=== PATIENT | male | born 1950 | race Caucasian/White ===

== ENCOUNTER 2020-05-07 11:02 | Emergency (ER) | payer BC, MEDICARE ==
[2020-05-07 11:26] LABS: Absolute Neutrophil Ct (ANC) 4.78 (1.4-6.9); BASOPHIL % 0.6 % (0.0-0.4); Basophil (Absolute #) 0.04 (0-0.4); Eosinophil % 7.2 % (0.00-5.0); Eosinophil (Absolute #) 0.48 (0-0.5); Hematocrit 44.3 % (42-50); Hemoglobin 14.8 gm/dl (12.5-18.0); Lymphocyte (Absolute #) 0.71 (1.0-4.6); Lymphocytes % 10.7 % (24.0-44.0); Mean Cell Volume 88.6 fl (78-100); Mean Corpuscular Hemoglobin 29.6 pg (26-32); Mean Corpuscular Hgb Concent. 33.4 g/dl (32-36); Mean Platelet Volume 10.6 fl (7.5-11.0); Monocyte (Absolute #) 0.65 (0.0-1.3); Monocytes % 9.8 % (0.0-12.0); Neutrophil % 71.7 % (36.0-66.0); Platelet Count 167 K/mm3 (150-450); White Blood Count 6.7 K/mm3 (4.0-10.5)
[2020-05-07 11:33] LABS: INR 1.01 (0.8-3.0); PROTIME 11.4 SECONDS (8.83-12.87)
[2020-05-07 11:36] LABS: PTT 30.7 SECONDS (24.1-36.1)
[2020-05-07 11:46] VITALS: BP 162/98; PULSE 60; O2SAT 95
--- NOTE | 2020-05-07 11:59 | ERPHSYRPT ---
- History of Present Illness Time Seen by Provider: 05/07/20 11:55 Source: patient, family Exam Limitations: no limitations Patient Subjective Stated Complaint: Weakness to left leg Triage Nursing Assessment: Patient brought back to ED and transferred self to bed. Patient A+O X 3. Patient's skin pink, warm and dry. Patient complain of left leg numbn/ess that started around 0900 this am. Patient has recent stroke on 05/03/2020 that effected his left hand. Patient was just released from [facility] yesterday. Patient has drooping to left side of mouth noted. Patient's noted to be weaker on left side. Physician History: Patient complain of left leg numbn/ess that started around 0900 this am. Patient has recent stroke on 05/03/2020 that effected his left hand. Patient was just released from [facility] yesterday. Patient has drooping to left side of mouth noted. Patient's noted to be weaker on left side. Time of Onset/Last Time Seen Normal: Weakness to left leg started today AM Timing/Duration: today Severity: mild Character of Deficits: new weakness, altered sensation, LLE Deficits: no difficulties Baseline/Normal Cognition: alert oriented x 3 Current Cognition: alert oriented x 3 Baseline Gait: walks w/o assistance Associated Symptoms: weakness, numbness/tingling in legs/feet Allergies/Adverse Reactions: No Known Drug Allergies Allergy (Verified 05/07/20 11:04) Home Medications: Amlodipine Besylate 5 mg [Norvasc 5 mg] 1 tab PO DAILY 05/07/20 [History] Aspirin 81 gm Chew [Baby Aspirin 81 mg Chew] 1 tab PO DAILY 05/07/20 [History] Atorvastatin Calcium 1 tab PO HS 05/07/20 [History] Bumetanide 1 mg [Bumex 1 mg] 1 tab PO DAILY 05/07/20 [History] Carvedilol 6.25 mg [Coreg 6.25 MG] 1 tab PO DAILY 05/07/20 [History] Glipizide [Glipizide Xl] 1 tab PO BID 05/07/20 [History] Lisinopril 1 tab PO DAILY 05/07/20 [History] Metformin HCl 500 mg [Glucophage 500 MG] 1 tab PO BID 05/07/20 [History] Hx Tetanus, Diphtheria Vaccination/Date Given: Yes Hx Influenza Vaccination/Date Given: Yes Hx Pneumococcal Vaccination/Date Given: No Immunizations Up to Date: Yes Travel Risk - International Travel Have you traveled outside of the country in past 3 weeks: No - Coronavirus Screening Are you exhibiting any of the following symptoms?: No Close contact with a COVID-19 positive Pt in past 14-21 Days: No - Review of Systems Constitutional: No Symptoms Eyes: No Symptoms Ears, Nose, & Throat: No Symptoms Respiratory: No Symptoms Cardiac: No Symptoms Abdominal/Gastrointestinal: No Symptoms Genitourinary Symptoms: No Symptoms Musculoskeletal: No Symptoms Skin: No Symptoms Neurological: Focal Weakness - Past Medical History Pertinent Past Medical History: Yes Neurological History: Stroke ENT History: No Pertinent History Cardiac History: High Cholesterol Respiratory History: No Pertinent History Endocrine Medical History: Diabetes Type II Musculoskeletal History: No Pertinent History GI Medical History: Gallbladder Disease History: No Pertinent History Psycho-Social History: No Pertinent History Male Reproductive Disorders: No Pertinent History - Past Surgical History Past Surgical History: Yes Neuro Surgical History: No Pertinent History Cardiac: No Pertinent History Respiratory: No Pertinent History Gastrointestinal: Appendectomy, Colon Resection Genitourinary: Other Musculoskeletal: No Pertinent History Male Surgical History: Vasectomy Other Surgical History: Bladder grown into colon, surgery performed by Dr. Mclean in 2005 - Social History Smoking Status: Never smoker Exposure to second hand smoke: Yes Drug Use: none Patient Lives Alone: No - Nursing Vital Signs Nursing Vital Signs: Initial Vital Signs Pulse Rate 63 05/07/20 11:06 Respiratory Rate 18 05/07/20 11:06 Blood Pressure 178/94 05/07/20 11:06 O2 Sat by Pulse Oximetry 98 05/07/20 11:06 Pain Scale Pain Intensity 0 - Brooke Coma Scale Best Eye Response (Brooke): (4) open spontaneously Best Verbal Response (Brooke): (5) oriented Best Motor Response (Windsor): (6) obeys commands [place] Total: 15 - Physical Exam General Appearance: no apparent distress, alert Eye Exam: bilateral eye: PERRL, EOMI Ears, Nose, Throat Exam: normal ENT inspection, moist mucous membranes Neck Exam: normal inspection, non-tender, supple Respiratory: normal breath sounds, lungs clear, airway intact, No respiratory distress Cardiovascular: regular rate/rhythm, No edema Gastrointestinal: soft, No tenderness, No distention Back Exam: normal inspection Extremity Exam: normal inspection, No pedal edema 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, 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 hearing, facial droop, tongue midline Coordination/Gait: normal finger to nose Motor/Sensory: weak motor strength LLE DTR: knee (R): 2+, knee (L): 1+, ankle (R): 2+, ankle (L): 1+ Skin Exam: normal color, warm, dry, No rash SpO2 Interpretation: normal SpO2: 95 O2 Delivery: Room Air - Course Nursing assessment & vital signs reviewed: Yes - CT Exams Head CT Interpretation: Tele-radiologist Report Ordered Tests: Active Orders 24 hr Category Date Time Status Floral Merchandiser STAT Care 05/07/20 11:12 Active EKG-ER Only STAT Care 05/07/20 11:11 Active IV Insertion STAT Care 05/07/20 11:41 Active NPO (ED) STAT Care 05/07/20 11:11 Active Oxygen-ED Only Nasal Cannula 2 lpm Care 05/07/20 11:11 Active HEAD WITHOUT CONTRAST [CT] Stat Exams 05/07/20 11:05 Taken BMP Stat Lab 05/07/20 11:11 Completed CBC W DIFF Stat Lab 05/07/20 11:11 Completed PROTIME WITH INR Stat Lab 05/07/20 11:11 Completed PTT Stat Lab 05/07/20 11:11 Completed TROPONIN Stat Lab 05/07/20 11:11 Completed Lab/Rad Data: Laboratory Result Diagrams 05/07/20 11:11 05/07/20 11:11 Laboratory Results 05/07/20 05/07/20 05/07/20 Range/Units 11:11 11:11 11:11 WBC 6.7 (4.0-10.5) K/mm3 RBC 5.00 (4.1-5.6) M/mm3 Hgb 14.8 (12.5-18.0) gm/dl Hct 44.3 (42-50) % MCV 88.6 (78-100) fl MCH 29.6 (26-32) pg MCHC 33.4 (32-36) g/dl RDW 14.0 (11.5-14.0) % Plt Count 167 (150-450) K/mm3 MPV 10.6 (7.5-11.0) fl Gran % 71.7 H (36.0-66.0) % Eos # (Auto) 0.48 (0-0.5) Absolute Lymphs (auto) 0.71 L (1.0-4.6) Absolute Monos (auto) 0.65 (0.0-1.3) Lymphocytes % 10.7 L (24.0-44.0) % Monocytes % 9.8 (0.0-12.0) % Eosinophils % 7.2 H (0.00-5.0) % Basophils % 0.6 (0.0-0.4) % Absolute Granulocytes 4.78 (1.4-6.9) Basophils # 0.04 (0-0.4) PT 11.4 (8.83-12.87) SECONDS INR 1.01 (0.8-3.0) APTT 30.7 (24.1-36.1) SECONDS Sodium 134 L (137-145) mmol/L Potassium 4.4 (3.5-5.1) mmol/L Chloride 106 (98-107) mmol/L Carbon Dioxide 21 L (22-30) mmol/L Anion Gap 11.4 (5-15) MEQ/L BUN 27 H (9-20) mg/dL Creatinine 1.60 H (0.66-1.25) mg/dL Estimated GFR 46.1 ML/MIN Glucose 248 H (74-106) mg/dL Calcium 9.2 (8.4-10.2) mg/dL Troponin I 0.023 (0.000-0.034) ng/mL - Progress Progress: improved Progress Note: 05/07/20 12:15 Walk to the bathroom without any difficulties. Patient has no speech difficulty. Patient states that the strength on his left upper arm is coming back now he can flex his wrist as well as his elbow and he is feeling more strength in his left upper extremity. Lab results and CAT scan results discussed with him. Patient is informed that he should continue physical therapy speech therapy and occupational therapy actively. Counseled pt/family regarding: lab results, diagnosis, need for follow-up, rad results - Departure Departure Disposition: Home Clinical Impression: Status post cerebrovascular accident Cerebrovascular accident (stroke) Qualifiers: CVA mechanism: other Qualified Code(s): I63.89 - Other cerebral infarction Condition: Stable Critical Care Time: Yes Critical Care Time(excluding separately billable procedures): Critical 30-74 mins Referrals: PHILIP ISAAC [Primary Care Provider] - Additional Instructions: Discharge/Care Plan COY HENRY was seen on 05/07/20 in the Emergency Room. The patient was counseled regarding Diagnosis,Lab results, Imaging studies, need for follow up and when to return to the Emergency Room. Prescriptions given: Discharge Note I have spoken with the patient and/or caregivers. I have explained the patient's condition, diagnosis and treatment plan based on the information available to me at this time. I have answered the patient's and/or caregiver's questions and addressed any concerns. The patient and/or caregivers have as good understanding of the patient's diagnosis, condition and treatment plan as can be expected at this point. The vital signs have been stable. The patient's condition is stable and appropriate for discharge from the emergency department. The patient will pursue further outpatient evaluation with the primary care physician or other designated or consulting physician as outlined in the discharge instructions. The patient and/or caregivers are agreeable to this plan of care and follow-up instructions have been explained in detail. The patient and/or caregivers have received these instruction. The patient/and or caregivers are aware that any significant change in condition or worsening of symptoms should prompt an immediate return to this or the closest emergency department or call 911. COY HENRY was seen on 05/07/20 n the Emergency Room. At that time you were treated for an emergent condition, during your visit Laboratory, Radiology and/or other procedures may have been ordered. It is very important that you follow-up with your Primary Care Physician PHILIP ISAAC within the next 24-48 hours to review your Emergency Room visit and the final results of testing that was ordered. Some test results such as Urine Cultures, Blood Cultures, and other cultures if ordered will not be finalized for 24-48 hours. If you do not have a Primary Care Provider please call the medical records department at [phone] to obtain a copy of your results or you may sign into our patient portal to obtain these results by visiting us @ [email or web address] and completing the following steps: 1. Click on the Patient Portal link 2. Click the Patient Self Enrollment Link to complete the enrollment form and entering your 3. Once the enrollment form is completed you will receive an email with a temporary ID and password at the email address you provided. 4. Next choose a user name and password. Your user name must be at least 4 characters long and your password must be at least 4 characters long. 5. Choose a security question from the list and provide your answer to the question. If you already have signed into the Health Portal you may access your Health Care Information 27/11 by the following steps: 1. Login to our website @ [email or web address] 2. Enter your original user name and password. FAQS The [facility] Health Portal is an online tool that contains your Lab Results, Radiology Reports, Visit History, Discharge Instructions and Health Summary Lab and Radiology Results will not be available for 72 hours on the portal. The Portal is a secure site, passwords are encryted and URLs are re-written so they cannot be copied and pasted. You and authorized family members are the only ones who can access your Portal. Also there is a timeout feature that protects your information if you leave the Portal page open. If you have technical difficulty please use the Contact Us link on the page this will allow you to submit any questions you have regarding the Portal or you may contact the Medical Record Department at [phone] ext [phone].
[2020-05-07 12:06] LABS: ANION GAP 11.4 MEQ/L (5-15); Calcium 9.2 mg/dL (8.4-10.2); Creatinine 1 1.6 mg/dL (0.66-1.25); EST GLOMERULAR FILTRATION RATE 46.1 ML/MIN; Potassium 4.4 mmol/L (3.5-5.1); TROPONIN 0.023 ng/mL (0.000-0.034)
--- NOTE | 2020-05-07 17:58 | XRAY ---
Indication: Left hand and left leg numbness one week. Multiple contiguous axial images obtained through the head without contrast. Comparison: January 25, 2013. Age-appropriate global atrophy. Right precentral gyrus demonstrates small focus of subtle hypoattenuation concerning for ischemia. No acute intracranial hemorrhage, mass effect, or midline shifting. Fourth ventricle is midline without hydrocephalus. Bony calvarium remains intact. Visual d paranasal sinuses and mastoid air cells are clear. Impression: New right precentral gyrus hypoattenuation, possible ischemia. No acute hemorrhage/mass effect. Comment: Preliminary interpretation was made by [facility]. No critical discrepancy.
== END 2020-05-07 12:42 | disposition home or self-care (01) ==
LOC: ED 11:02
DX: R20.0 Anesthesia of skin (principal); Z86.73 Personal history of transient ischemic attack (TIA), and cerebral infarction without residual deficits; Z79.899 Other long term (current) drug therapy; E11.9 Type 2 diabetes mellitus without complications; E78.5 Hyperlipidemia, unspecified; I63.89 Other cerebral infarction
CPT/HCPCS: 36000; 36415; 70450; 80048; 84484; 85025; 85610; 85730; 93005; 93041; 99284; 99291

== ENCOUNTER 2020-12-07 00:29 | Emergency (ER) | payer BC, MEDICARE ==
[2020-12-07 00:54] LABS: Absolute Neutrophil Ct (ANC) 3.94 (1.4-6.9); Basophil (Absolute #) 0.06 (0-0.4); Eosinophil % 6.3 % (0.00-5.0); Eosinophil (Absolute #) 0.38 (0-0.5); Hematocrit 40.2 % (42-50); Hemoglobin 13.4 gm/dl (12.5-18.0); Lymphocyte (Absolute #) 0.92 (1.0-4.6); Lymphocytes % 15.3 % (24.0-44.0); Mean Cell Volume 89.3 fl (78-100); Mean Corpuscular Hemoglobin 29.8 pg (26-32); Mean Corpuscular Hgb Concent. 33.3 g/dl (32-36); Mean Platelet Volume 10.7 fl (7.5-11.0); Monocyte (Absolute #) 0.72 (0.0-1.3); Neutrophil % 65.4 % (36.0-66.0); Platelet Count 180 K/mm3 (150-450); Red Cell Distribution Width 13.5 % (11.5-14.0)
--- NOTE | 2020-12-07 01:03 | ERPHSYRPT ---
- History of Present Illness Time Seen by Provider: 12/07/20 00:45 Historian: patient Exam Limitations: no limitations Patient Subjective Stated Complaint: . Triage Nursing Assessment: . Physician History: Patient is a 69-year-old male presents to our ED with complaints of chest pain that has been intermittent for the past 3 weeks. Patient states chest pain has gotten progressively worse. Pain currently rated 10 out of 10. Pain tends to radiate to his back. Patient feels nauseous. No vomiting. No fever. No tra mirian. Symptoms are mild to moderate in intensity. No specific worsening or improving factors. Patient voices no other complaints or concerns at this time. Timing/Duration: week(s) (3 weeks pain significantly worse today.) Activities at Onset: none Quality: aching Location: substernal Chest Pain Radiation: back Severity of Pain-Max: moderate Severity of Pain-Current: mild Modifying Factors: Improves With: nitroglycerin Associated Symptoms: nausea, No shortness of breath, No fever, No weakness, No syncope, No headache Prior Chest Pain/Cardiac Workup: no prior chest pain Nitro Today/Relief: no nitro taken today Aspirin Treatment Today: no aspirin today Allergies/Adverse Reactions: No Known Drug Allergies Allergy (Verified 12/07/20 00:47) Home Medications: Amlodipine Besylate 5 mg [Norvasc 5 mg] 1 tab PO DAILY 05/07/20 [History] Aspirin 81 gm Chew [Baby Aspirin 81 mg Chew] 1 tab PO DAILY 05/07/20 [History] Atorvastatin Calcium 1 tab PO HS 05/07/20 [History] Bumetanide 1 mg [Bumex 1 mg] 1 tab PO DAILY 05/07/20 [History] Carvedilol 6.25 mg [Coreg 6.25 MG] 1 tab PO DAILY 05/07/20 [History] Glipizide [Glipizide Xl] 1 tab PO BID 05/07/20 [History] Lisinopril 1 tab PO DAILY 05/07/20 [History] Metformin HCl 500 mg [Glucophage 500 MG] 1 tab PO BID 05/07/20 [History] Hx Tetanus, Diphtheria Vaccination/Date Given: Yes Hx Influenza Vaccination/Date Given: Yes (fall 2019) Hx Pneumococcal Vaccination/Date Given: Yes (about 1 yr ago) Immunizations Up to Date: Yes Travel Risk - International Travel Have you traveled outside of the country in past 3 weeks: No - Coronavirus Screening Are you exhibiting any of the following symptoms?: No - Vaccine Status Have you recieved a Covid-19 vaccination: No - Review of Systems Constitutional: No Symptoms, No Fever, No Chills Eyes: No Symptoms Ears, Nose, & Throat: No Symptoms Respiratory: No Symptoms, No Cough, No Dyspnea Cardiac: No Symptoms, No Chest Pain, No Edema, No Syncope Abdominal/Gastrointestinal: No Symptoms, No Abdominal Pain, No Nausea, No Vomiting, No Diarrhea Genitourinary Symptoms: No Symptoms, No Dysuria Musculoskeletal: No Symptoms, No Back Pain, No Neck Pain Skin: No Symptoms, No Rash Neurological: No Symptoms, No Dizziness, No Focal Weakness, No Sensory Changes Psychological: No Symptoms Endocrine: No Symptoms Hematologic/Lymphatic: No Symptoms Immunological/Allergic: No Symptoms All Other Systems: Reviewed and Negative - Past Medical History Pertinent Past Medical History: Yes Neurological History: Stroke ENT History: No Pertinent History Cardiac History: High Cholesterol Respiratory History: No Pertinent History Endocrine Medical History: Diabetes Type II Musculoskeletal History: No Pertinent History GI Medical History: Gallbladder Disease History: No Pertinent History Psycho-Social History: No Pertinent History Male Reproductive Disorders: No Pertinent History - Past Surgical History Past Surgical History: Yes Neuro Surgical History: No Pertinent History Cardiac: No Pertinent History Respiratory: No Pertinent History Gastrointestinal: Appendectomy, Cholecystectomy, Colon Resection Genitourinary: Other Musculoskeletal: No Pertinent History Male Surgical History: Vasectomy Other Surgical History: Bladder grown into colon, surgery performed by Dr. Mclean in 2005 - Social History Smoking Status: Never smoker Exposure to second hand smoke: Yes Drug Use: none Patient Lives Alone: No - Nursing Vital Signs Nursing Vital Signs: Initial Vital Signs Temperature 97.8 F 12/07/20 00:30 Pulse Rate 66 12/07/20 00:30 Respiratory Rate 14 12/07/20 00:30 Blood Pressure 157/99 12/07/20 00:30 O2 Sat by Pulse Oximetry 99 12/07/20 00:30 Pain Scale Pain Intensity 8 - Physical Exam General Appearance: no apparent distress, alert Eye Exam: PERRL/EOMI, eyes nml inspection Ears, Nose, Throat Exam: normal ENT inspection, moist mucous membranes Neck Exam: normal inspection, non-tender, supple, full range of motion Respiratory Exam: normal breath sounds, lungs clear, No respiratory distress Cardiovascular Exam: regular rate/rhythm, normal heart sounds Gastrointestinal/Abdomen Exam: soft, No tenderness, No mass Back Exam: normal inspection, No CVA tenderness, No vertebral tenderness Extremity Exam: normal inspection, normal range of motion, swelling, other (1+ pitting edema bilateral lower extremities.) Neurologic Exam: alert, oriented x 3, cooperative, normal mood/affect, sensation nml, No motor deficits Skin Exam: normal color, warm, dry Lymphatic Exam: No adenopathy SpO2 Interpretation: normal SpO2: 99 O2 Delivery: Room Air - Course Nursing assessment & vital signs reviewed: Yes EKG Interpreted by Me: RATE (66), Sinus Rhythm, NORMAL AXIS, NORMAL INTERVALS - Radiology Exams Chest X-ray Interpretation: Teleradiologist Report (Lungs are unremarkable no consolidation pleural spaces are unremarkable no pneumothorax or effusion. Unremarkable mediastinum are unremarkable bones and joints. No acute findings) Ordered Tests: Active Orders 24 hr Category Date Time Status Type Mapper STAT Care 12/07/20 00:34 Active EKG-ER Only STAT Care 12/07/20 00:33 Active IV Insertion STAT Care 12/07/20 00:33 Active Pulse Oximetry (ED) STAT Care 12/07/20 00:33 Active CHEST 1 VIEW (PORTABLE) Stat Exams 12/07/20 00:34 Taken CBC W DIFF Stat Lab 12/07/20 00:45 Completed CMP Stat Lab 12/07/20 00:45 Completed NT PRO BNP Stat Lab 12/07/20 00:45 Completed TROPONIN Q3H Lab 12/07/20 00:45 Completed TROPONIN Q3H Lab 12/07/20 03:45 Ordered TROPONIN Q3H Lab 12/07/20 06:45 Ordered TROPONIN Q3H Lab 12/07/20 09:45 Ordered TROPONIN Q3H Lab 12/07/20 12:45 Ordered UA W/RFX UR CULTURE Stat Lab 12/07/20 01:56 Completed Medication Summary Generic Name Dose Route Start Last Admin Trade Name Freq PRN Reason Stop Dose Admin Nitroglycerin/Dextrose 250 mls @ 1.5 mls/hr 12/07/20 01:51 12/07/20 02:01 Ntg 0.2mg/Ml In D5w Glass IV 01/06/21 01:50 5 mcg/min .Q24H PRN 1.5 mls/hr CHEST PAIN Administration Protocol 5 MCG/MIN Discontinued Medications Generic Name Dose Route Start Last Admin Trade Name Derick PRN Reason Stop Dose Admin Aspirin 324 mg 12/07/20 00:34 12/07/20 01:13 Baby Aspirin 81 Mg Chew PO 12/07/20 00:35 324 mg STAT ONE Administration Enoxaparin Sodium 100 mg 12/07/20 01:50 12/07/20 02:01 Enoxaparin Sodium 1 mg/kg (100 mg) 12/07/20 01:51 Not Given SQ ONCE STA Enoxaparin Sodium Confirm 12/07/20 01:58 Enoxaparin Sodium Administered 12/07/20 01:59 Dose 120 mg SQ .STK-MED ONE Enoxaparin Sodium 100 mg 12/07/20 01:59 12/07/20 02:17 Enoxaparin Sodium SQ 12/07/20 02:00 100 mg STAT STA Administration Nitroglycerin 1 gm 12/07/20 00:35 12/07/20 01:13 Nitro-Bid 2% Ud Packets TOP 12/07/20 00:36 1 gm STAT ONE Administration Nitroglycerin Confirm 12/07/20 01:10 Nitro-Bid 2% Ud Packets Administered 12/07/20 01:11 Dose 1 gm .ROUTE .STK-MED ONE Lab/Rad Data: Laboratory Result Diagrams 12/07/20 00:45 12/07/20 00:45 Laboratory Results 12/07/20 12/07/20 12/07/20 Range/Units 01:56 00:45 00:45 WBC (4.0-10.5) K/mm3 RBC (4.1-5.6) M/mm3 Hgb (12.5-18.0) gm/dl Hct (42-50) % MCV (78-100) fl MCH (26-32) pg MCHC (32-36) g/dl RDW (11.5-14.0) % Plt Count (150-450) K/mm3 MPV (7.5-11.0) fl Gran % (36.0-66.0) % Eos # (Auto) (0-0.5) Absolute Lymphs (auto) (1.0-4.6) Absolute Monos (auto) (0.0-1.3) Lymphocytes % (24.0-44.0) % Monocytes % (0.0-12.0) % Eosinophils % (0.00-5.0) % Basophils % (0.0-0.4) % Absolute Granulocytes (1.4-6.9) Basophils # (0-0.4) Sodium 136 L (137-145) mmol/L Potassium 4.1 (3.5-5.1) mmol/L Chloride 102 (98-107) mmol/L Carbon Dioxide 25 (22-30) mmol/L Anion Gap 12.2 (5-15) MEQ/L BUN 19 (9-20) mg/dL Creatinine 1.36 H (0.66-1.25) mg/dL Estimated GFR 55.6 ML/MIN Glucose 295 H (74-106) mg/dL Calcium 9.0 (8.4-10.2) mg/dL Total Bilirubin 0.40 (0.2-1.3) mg/dL AST 25 (17-59) U/L ALT 16 (0-50) U/L Alkaline Phosphatase 121 (38-126) U/L Troponin I 0.022 (0.000-0.034) ng/mL NT-Pro-B Natriuret Pep 1410 H (0-900) pg/mL Serum Total Protein 6.7 (6.3-8.2) g/dL Albumin 3.9 (3.5-5.0) g/dL Urine Color STRAW (YELLOW) Urine Appearance CLEAR (CLEAR) Urine pH 7.0 (5-6) Ur Specific Riley 1.012 (1.005-1.025) Urine Protein NEGATIVE (Negative) Urine Ketones NEGATIVE (NEGATIVE) Urine Blood NEGATIVE (0-5) Isaak/ul Urine Nitrite NEGATIVE (NEGATIVE) Urine Bilirubin NEGATIVE (NEGATIVE) Urine Urobilinogen NEGATIVE (0-1) mg/dL Ur Leukocyte Esterase NEGATIVE (NEGATIVE) Urine WBC (Auto) NONE (0-5) /HPF Urine RBC (Auto) NONE (0-2) /HPF U Epithel Cells (Auto) NONE (FEW) /HPF Urine Culture Reflexed NO (NO) Urine Glucose >=500 (NEGATIVE) mg/dL 12/07/20 Range/Units 00:45 WBC 6.0 (4.0-10.5) K/mm3 RBC 4.50 (4.1-5.6) M/mm3 Hgb 13.4 (12.5-18.0) gm/dl Hct 40.2 L (42-50) % MCV 89.3 (78-100) fl MCH 29.8 (26-32) pg MCHC 33.3 (32-36) g/dl RDW 13.5 (11.5-14.0) % Plt Count 180 (150-450) K/mm3 MPV 10.7 (7.5-11.0) fl Gran % 65.4 (36.0-66.0) % Eos # (Auto) 0.38 (0-0.5) Absolute Lymphs (auto) 0.92 L (1.0-4.6) Absolute Monos (auto) 0.72 (0.0-1.3) Lymphocytes % 15.3 L (24.0-44.0) % Monocytes % 12.0 (0.0-12.0) % Eosinophils % 6.3 H (0.00-5.0) % Basophils % 1.0 (0.0-0.4) % Absolute Granulocytes 3.94 (1.4-6.9) Basophils # 0.06 (0-0.4) Sodium (137-145) mmol/L Potassium (3.5-5.1) mmol/L Chloride (98-107) mmol/L Carbon Dioxide (22-30) mmol/L Anion Gap (5-15) MEQ/L BUN (9-20) mg/dL Creatinine (0.66-1.25) mg/dL Estimated GFR ML/MIN Glucose (74-106) mg/dL Calcium (8.4-10.2) mg/dL Total Bilirubin (0.2-1.3) mg/dL AST (17-59) U/L ALT (0-50) U/L Alkaline Phosphatase (38-126) U/L Troponin I (0.000-0.034) ng/mL NT-Pro-B Natriuret Pep (0-900) pg/mL Serum Total Protein (6.3-8.2) g/dL Albumin (3.5-5.0) g/dL Urine Color (YELLOW) Urine Appearance (CLEAR) Urine pH (5-6) Ur Specific Riley (1.005-1.025) Urine Protein (Negative) Urine Ketones (NEGATIVE) Urine Blood (0-5) Isaak/ul Urine Nitrite (NEGATIVE) Urine Bilirubin (NEGATIVE) Urine Urobilinogen (0-1) mg/dL Ur Leukocyte Esterase (NEGATIVE) Urine WBC (Auto) (0-5) /HPF Urine RBC (Auto) (0-2) /HPF U Epithel Cells (Auto) (FEW) /HPF Urine Culture Reflexed (NO) Urine Glucose (NEGATIVE) mg/dL - Progress Progress: improved Air Movement: good Progress Note: Patient reassessed. Chest pain significantly improved. Chest pain described no as a vague pain. Case discussed with Dr. Ross ER physician at [facility] who accepts transfer. Plan of care discussed with patient. He agrees to transfer to [facility] for further evaluation and treatment. Dr. Ross requested a 1 rome per cake dose of Lovenox as well as nitro glycerin drip. BNP elevated. Patient is on Bumex daily. Patient does have some lower extremity pitting edema. No crackles on physical exam. No pulmonary congestion. I do not believe patient is in failure. 12/07/20 01:54 Blood Culture(s) Obtained: No Antibiotics given: No Counseled pt/family regarding: lab results, diagnosis, rad results - Departure Departure Disposition: Transfer Clinical Impression: ACS (acute coronary syndrome), Chest pain, Elevated brain natriuretic peptide (BNP) level Condition: Stable Critical Care Time: No Referrals: PHILIP ISAAC [Primary Care Provider] -
[2020-12-07] MEDS ORDERED: NITRO-BID 2% UD PACKETS ONE (01:10)
[2020-12-07] MEDS: BABY ASPIRIN 81 MG CHEW PO ONE (01:13)
[2020-12-07] MEDS: NITRO-BID 2% UD PACKETS TOP ONE (01:13)
[2020-12-07 01:17] LABS: ALBUMIN 3.9 g/dL (3.5-5.0); ANION GAP 12.2 MEQ/L (5-15); BILIRUBIN,TOTAL 0.4 mg/dL (0.2-1.3); Creatinine 1 1.36 mg/dL (0.66-1.25); EST GLOMERULAR FILTRATION RATE 55.6 ML/MIN; Potassium 4.1 mmol/L (3.5-5.1); Total Protein 6.7 g/dL (6.3-8.2)
[2020-12-07] MEDS ORDERED: ENOXAPARIN SODIUM SQ ONE (01:58)
[2020-12-07] MEDS ORDERED: Ntg 0.2MG/Ml in D5W GLASS*** 250 ML IV ONE (01:59)
[2020-12-07 02:00] LABS: Appearance CLEAR (CLEAR); Bilirubin NEGATIVE (NEGATIVE); Blood NEGATIVE Ery/ul (0-5); Glucose >=500 mg/dL (NEGATIVE); Ketones NEGATIVE (NEGATIVE); Leukocyte Esterase NEGATIVE (NEGATIVE); Nitrite NEGATIVE (NEGATIVE); Protein,Urine Dip NEGATIVE (Negative); Specific Gravity 1.012 (1.005-1.025); Urobilinogen NEGATIVE mg/dL (0-1)
[2020-12-07] MEDS: Ntg 0.2MG/Ml in D5W GLASS*** 250 ML IV PRN (02:01)
[2020-12-07] MEDS: ENOXAPARIN SODIUM SQ STA ×2 (02:01→02:17)
[2020-12-07 02:02] VITALS: PULSE 62
[2020-12-07 02:04] VITALS: BP 172/91
[2020-12-07 02:16] VITALS: O2SAT 99
--- NOTE | 2020-12-07 09:11 | XRAY ---
Indication: Chest pain. Comparison: November 24, 2014. Portable apical lordotic chest demonstrates normal heart and lungs. Bony thorax intact again with mild osteopenia and degenerative changes. Comment: Preliminary interpretation made by [facility]. No critical discrepancy.
== END 2020-12-07 02:34 | disposition short-term general hospital (02) ==
LOC: ED 00:29
DX: I24.9 Acute ischemic heart disease, unspecified (principal); I10 Essential (primary) hypertension; R07.9 Chest pain, unspecified; Z79.899 Other long term (current) drug therapy; E11.9 Type 2 diabetes mellitus without complications; E78.00 Pure hypercholesterolemia, unspecified; Z86.73 Personal history of transient ischemic attack (TIA), and cerebral infarction without residual deficits; R79.0 Abnormal level of blood mineral
CPT/HCPCS: 36000; 36415; 71045; 80053; 81001; 83880; 84484; 85025; 93005; 93041; 94760; 96372; 99285; J1650; A9270-GY

== ENCOUNTER 2021-01-12 13:15 | Observation (INO) | payer BC, MEDICARE ==
[2021-01-12] MEDS ORDERED: Sodium Chloride 0.9% 1000 ML 1,000 ML IV SCH (15:15)
--- NOTE | 2021-01-12 15:45 | ERPHSYRPT ---
- History of Present Illness Time Seen by Provider: 01/12/21 13:45 Source: patient Exam Limitations: no limitations Patient Subjective Stated Complaint: pt here for not being able to swallow well for a month he states he lost 60 lbs, he was admitted to [facility] a month ago and they could not scope him because he is on blood thinners for PE and DV. Triage Nursing Assessment: pt walked in alert resp easy. skin w/p/d , face mask in place. abd soft. Physician History: Patient is a 70-year-old male presents to our ED with progressive dysphagia for approximately 1 month. Patient states that he is now unable to tolerate fluids/liquids. Patient was in our hospital approximately 1 month ago when symptoms started. Patient was transferred over to [facility]. Patient was advised that he needed dilation of his esophagus however it was not done as patient was started on Eliquis for PE DVT. Patient has no other complaints. No chest pain or shortness of breath. No nausea vomiting or diaphoresis. No fever. No rash. Timing/Duration: week(s) (1 month) Severity: moderate Modifying Factors: Improves With: nothing Associated Symptoms: denies symptoms Allergies/Adverse Reactions: No Known Drug Allergies Allergy (Verified 01/12/21 13:35) Home Medications: Amlodipine Besylate 5 mg [Norvasc 5 mg] 1 tab PO DAILY 05/07/20 [History] Aspirin 81 gm Chew [Baby Aspirin 81 mg Chew] 1 tab PO DAILY 05/07/20 [History] Atorvastatin Calcium 1 tab PO HS 05/07/20 [History] Bumetanide 1 mg [Bumex 1 mg] 1 tab PO DAILY 05/07/20 [History] Carvedilol 6.25 mg [Coreg 6.25 MG] 1 tab PO DAILY 05/07/20 [History] Glipizide [Glipizide Xl] 1 tab PO BID 05/07/20 [History] Lisinopril 1 tab PO DAILY 05/07/20 [History] Metformin HCl 500 mg [Glucophage 500 MG] 1 tab PO BID 05/07/20 [History] Apixaban [Eliquis] 1 ea BID 01/12/21 [History] Hx Tetanus, Diphtheria Vaccination/Date Given: Yes Hx Influenza Vaccination/Date Given: Yes (fall 2019) Hx Pneumococcal Vaccination/Date Given: Yes (about 1 yr ago) Immunizations Up to Date: Yes Travel Risk - International Travel Have you traveled outside of the country in past 3 weeks: No - Coronavirus Screening Are you exhibiting any of the following symptoms?: Yes Symptoms: Shortness of Breath Close contact with a COVID-19 positive Pt in past 14-21 Days: No - Vaccine Status Have you recieved a Covid-19 vaccination: Yes [employer]: [employer] - Vaccination Dates Date of 2cond Vaccination (if applicable): jan 05 - Review of Systems Constitutional: No Symptoms, No Fever, No Chills Eyes: No Symptoms Ears, Nose, & Throat: No Symptoms Respiratory: No Symptoms, No Cough, No Dyspnea Cardiac: No Symptoms, No Chest Pain, No Edema, No Syncope Abdominal/Gastrointestinal: No Symptoms, No Abdominal Pain, No Nausea, No Vomiting, No Diarrhea Genitourinary Symptoms: No Symptoms, No Dysuria Musculoskeletal: No Symptoms, No Back Pain, No Neck Pain Skin: No Symptoms, No Rash Neurological: No Symptoms, No Dizziness, No Focal Weakness, No Sensory Changes Psychological: No Symptoms Endocrine: No Symptoms Hematologic/Lymphatic: No Symptoms Immunological/Allergic: No Symptoms All Other Systems: Reviewed and Negative - Past Medical History Pertinent Past Medical History: Yes Neurological History: Stroke ENT History: No Pertinent History Cardiac History: High Cholesterol Respiratory History: No Pertinent History Endocrine Medical History: Diabetes Type II Musculoskeletal History: No Pertinent History GI Medical History: Gallbladder Disease History: No Pertinent History Psycho-Social History: No Pertinent History Male Reproductive Disorders: No Pertinent History - Past Surgical History Past Surgical History: Yes Neuro Surgical History: No Pertinent History Cardiac: No Pertinent History Respiratory: No Pertinent History Gastrointestinal: Appendectomy, Cholecystectomy, Colon Resection Genitourinary: Other Musculoskeletal: No Pertinent History Male Surgical History: Vasectomy Other Surgical History: Bladder grown into colon, surgery performed by Dr. Rhoades in 2005 - Social History Smoking Status: Never smoker Exposure to second hand smoke: Yes Drug Use: none Patient Lives Alone: No - Nursing Vital Signs Nursing Vital Signs: Initial Vital Signs Temperature 97.4 F 01/12/21 13:25 Pulse Rate 56 L 01/12/21 13:25 Respiratory Rate 18 01/12/21 13:25 Blood Pressure 154/94 01/12/21 13:25 O2 Sat by Pulse Oximetry 97 01/12/21 13:25 Pain Scale Pain Intensity 0 - Physical Exam General Appearance: no apparent distress, alert Eye Exam: PERRL/EOMI, eyes nml inspection Ears, Nose, Throat Exam: normal ENT inspection, TMs normal, pharynx normal, moist mucous membranes Neck Exam: normal inspection, non-tender, supple, full range of motion Respiratory Exam: normal breath sounds, lungs clear, No respiratory distress Cardiovascular Exam: regular rate/rhythm, normal heart sounds, normal peripheral pulses Gastrointestinal/Abdomen Exam: soft, normal bowel sounds, No tenderness, No mass Back Exam: normal inspection, normal range of motion, No CVA tenderness, No vertebral tenderness Extremity Exam: normal inspection, normal range of motion, pelvis stable Neurologic Exam: alert, oriented x 3, cooperative, normal mood/affect, sensation nml, No motor deficits Skin Exam: normal color, warm, dry, No rash Lymphatic Exam: No adenopathy SpO2 Interpretation: normal SpO2: 97 O2 Delivery: Room Air - Course Nursing assessment & vital signs reviewed: Yes Ordered Tests: Active Orders 24 hr Category Date Time Status IV Insertion STAT Care 01/12/21 15:12 Active CBC W DIFF Stat Lab 01/12/21 15:46 Completed CMP Stat Lab 01/12/21 15:46 Completed Medication Summary Generic Name Dose Route Start Last Admin Trade Name Derick PRN Reason Stop Dose Admin Sodium Chloride 1,000 mls @ 100 mls/hr 01/12/21 15:15 01/12/21 15:53 Sodium Chloride 0.9% 1000 Ml IV 02/11/21 15:14 100 mls/hr .Q10H BEVERLY Administration Lab/Rad Data: Laboratory Result Diagrams 01/12/21 15:46 01/12/21 15:46 Laboratory Results 01/12/21 01/12/21 01/12/21 Range/Units 16:22 15:46 15:46 WBC 6.4 (4.0-10.5) K/mm3 RBC 3.86 L (4.1-5.6) M/mm3 Hgb 11.3 L (12.5-18.0) gm/dl Hct 34.4 L (42-50) % MCV 89.1 (78-100) fl MCH 29.3 (26-32) pg MCHC 32.8 (32-36) g/dl RDW 13.0 (11.5-14.0) % Plt Count 255 (150-450) K/mm3 MPV 10.4 (7.5-11.0) fl Gran % 66.0 (36.0-66.0) % Eos # (Auto) 0.26 (0-0.5) Absolute Lymphs (auto) 0.76 L (1.0-4.6) Absolute Monos (auto) 1.10 (0.0-1.3) Lymphocytes % 11.8 L (24.0-44.0) % Monocytes % 17.1 H (0.0-12.0) % Eosinophils % 4.0 (0.00-5.0) % Basophils % 1.1 (0.0-0.4) % Absolute Granulocytes 4.24 (1.4-6.9) Basophils # 0.07 (0-0.4) Sodium 135 L (137-145) mmol/L Potassium 4.1 (3.5-5.1) mmol/L Chloride 105 (98-107) mmol/L Carbon Dioxide 23 (22-30) mmol/L Anion Gap 10.8 (5-15) MEQ/L BUN 19 (9-20) mg/dL Creatinine 1.48 H (0.66-1.25) mg/dL Estimated GFR 50.2 ML/MIN Glucose 101 (74-106) mg/dL Calcium 9.2 (8.4-10.2) mg/dL Total Bilirubin 1.20 (0.2-1.3) mg/dL AST 70 H (17-59) U/L ALT 49 (0-50) U/L Alkaline Phosphatase 261 H (38-126) U/L Serum Total Protein 7.0 (6.3-8.2) g/dL Albumin 3.7 (3.5-5.0) g/dL SARS-CoV-2 (PCR) NEGATIVE (NEGATIVE) - Progress Progress: improved Progress Note: Patient reassessed. He is well. IV fluids infused. Patient has dysphagia unable to swallow solids. He has lost 60 pounds in a month. Patient having difficulty with liquids now. Case discussed with Dr. Messina accepts admission to observation. Case discussed with Dr. Rhoades. He will be on consult for possible esophageal dilation. Plan of care discussed with patient. He agrees to admission at [facility] for further evaluation and treatment. He voices no other complaints concerns at this time. Patient is Covid negative. Portions of this note were created with voice recognition technology. There may be grammatical, spelling, punctuation or sound alike errors 01/12/21 18:28 Counseled pt/family regarding: lab results, diagnosis, rad results - Departure Departure Disposition: Observation Clinical Impression: Dysphagia Condition: Stable Critical Care Time: No Referrals: PHILIP ISAAC NP [Primary Care Provider] -
[2021-01-12 15:49] LABS: Absolute Neutrophil Ct (ANC) 4.24 (1.4-6.9); BASOPHIL % 1.1 % (0.0-0.4); Basophil (Absolute #) 0.07 (0-0.4); Eosinophil (Absolute #) 0.26 (0-0.5); Hematocrit 34.4 % (42-50); Hemoglobin 11.3 gm/dl (12.5-18.0); Lymphocyte (Absolute #) 0.76 (1.0-4.6); Lymphocytes % 11.8 % (24.0-44.0); Mean Cell Volume 89.1 fl (78-100); Mean Corpuscular Hemoglobin 29.3 pg (26-32); Mean Corpuscular Hgb Concent. 32.8 g/dl (32-36); Mean Platelet Volume 10.4 fl (7.5-11.0); Monocytes % 17.1 % (0.0-12.0); Platelet Count 255 K/mm3 (150-450); Red Blood Count 3.86 M/mm3 (4.1-5.6); White Blood Count 6.4 K/mm3 (4.0-10.5)
[2021-01-12] MEDS ORDERED: Sodium Chloride 0.9% 1000 ML 1,000 ML ONE (15:50)
[2021-01-12 16:00] LABS: ALBUMIN 3.7 g/dL (3.5-5.0); ANION GAP 10.8 MEQ/L (5-15); BILIRUBIN,TOTAL 1.2 mg/dL (0.2-1.3); Calcium 9.2 mg/dL (8.4-10.2); Creatinine 1 1.48 mg/dL (0.66-1.25); EST GLOMERULAR FILTRATION RATE 50.2 ML/MIN; Potassium 4.1 mmol/L (3.5-5.1)
[2021-01-12] MEDS ORDERED: HUMALOG SQ PRN (20:08)
[2021-01-12] MEDS ORDERED: Coreg 6.25 MG PO ONE (22:00)
[2021-01-12] MEDS ORDERED: ENOXAPARIN SODIUM SQ SCH (22:00)
[2021-01-13] MEDS: Sodium Chloride 0.9% 1000 ML 1,000 ML IV SCH ×4 (00:51→19:57)
[2021-01-13 04:46] LABS: Absolute Neutrophil Ct (ANC) 4.52 (1.4-6.9); BASOPHIL % 0.8 % (0.0-0.4); Basophil (Absolute #) 0.05 (0-0.4); Hematocrit 33.5 % (42-50); Lymphocyte (Absolute #) 0.73 (1.0-4.6); Lymphocytes % 11.1 % (24.0-44.0); Mean Cell Volume 88.9 fl (78-100); Mean Corpuscular Hemoglobin 29.2 pg (26-32); Mean Corpuscular Hgb Concent. 32.8 g/dl (32-36); Mean Platelet Volume 10.3 fl (7.5-11.0); Monocyte (Absolute #) 1.09 (0.0-1.3); Monocytes % 16.5 % (0.0-12.0); Neutrophil % 68.6 % (36.0-66.0); Platelet Count 254 K/mm3 (150-450); Red Blood Count 3.77 M/mm3 (4.1-5.6); White Blood Count 6.6 K/mm3 (4.0-10.5)
[2021-01-13 04:58] LABS: ALBUMIN 3.3 g/dL (3.5-5.0); ANION GAP 11.4 MEQ/L (5-15); BILIRUBIN,TOTAL 1.5 mg/dL (0.2-1.3); Calcium 8.7 mg/dL (8.4-10.2); Creatinine 1 1.36 mg/dL (0.66-1.25); EST GLOMERULAR FILTRATION RATE 55.4 ML/MIN; Total Protein 6.3 g/dL (6.3-8.2)
[2021-01-13] MEDS ORDERED: PROTONIX 40 MG IV IV SCH (10:00)
--- NOTE | 2021-01-13 10:12 | HP ---
CHIEF COMPLAINT: Dysphagia. HISTORY OF PRESENT ILLNESS: The patient is a 70-year-old white male patient who reports that he has not been able to eat and more recently now also not able to drink any fluids. He reports he has lost a large amount of weight that he estimates at 60 pounds. He stopped taking his sugar medications as his sugars began running in the 's without any medications. The patient was fairly recently seen at [facility] at which time he was diagnosed with deep vein thrombosis and pulmonary embolism and he was started on Eliquis. The patient did get an EGD or dilatation procedure because of beginning his anticoagulant therapy for the above problems. The patient now represents to the emergency room where he was admitted to the hospital with the above problems. The patient reports that he has not been able to eat or drink most recently but the eating dates back approximately a month or so ago. PAST MEDICAL HISTORY: Otherwise significant for diabetes mellitus type II, hypertension and hyperlipidemia. PAST SURGICAL HISTORY: The patient has previously had appendectomy, cholecystectomy and colon resection. He reports that his bladder had grown down into his colon and he had surgery in 2005 for this. PHYSICAL EXAMINATION: The patient's vital signs on admission showed his temperature to be 97.4F, pulse 56, respiratory rate 18, blood pressure 154/94 with an O2 saturation of 97%. HEENT: Normocephalic, atraumatic. Pupils equal round reactive to light. Extraocular movements intact. Oropharynx is dry. NECK: Supple without lymphadenopathy, thyromegaly or JVD. CHEST: Clear to auscultation. HEART: Regular rate and rhythm without murmurs, rubs or gallops heard. ABDOMEN: Soft. No palpable masses. EXTREMITIES: Without cyanosis, clubbing or edema. NEUROLOGIC: The patient is alert and oriented x3 with no focal deficits noted. LAB DATA AND TESTS: COVID negative. He had hemoglobin 11.3, white blood cell count 6.4 and PLT count 255,000. He had a sugar of 101, BUN 19, creatinine 1.48. His alkaline phosphatase was elevated at 261. Prealbumin at 9.7 which is low. His repeat on labs the morning of 01/13/2021 showed his creatinine to be 1.36. His bilirubin was slightly elevated at 1.5. Albumin was low at 3.3 consistent with his issues about not being able to eat. ASSESSMENT: He had been admitted to the hospital for IV fluid hydration, surgical consultation. The patient was placed on Lovenox for bridge for his deep vein thrombosis and pulmonary embolism pending his surgical consult with probable EGD and dilatation procedure. We will hold his other medications presently other than pantoprazole we will place him on 40 mg IV in addition to his IV fluids.
[2021-01-13] MEDS ORDERED: Lactated Ringers 1,000 ML IV SCH (14:00)
[2021-01-13] MEDS ORDERED: DIPRIVAN 200 MG/20 ML IV ONE ×2 (14:06→15:25)
[2021-01-13] MEDS: Carafate SUSPENSION 1000 MG/10 ML PO SCH ×2 (16:47→21:15)
[2021-01-13] MEDS ORDERED: NORVASC 5 MG ONE (17:09)
[2021-01-13] MEDS ORDERED: Zestril 20 MG ONE (17:09)
[2021-01-13] MEDS: NORVASC 5 MG PO SCH (17:15)
[2021-01-13] MEDS: Zestril 20 MG PO SCH (17:15)
[2021-01-13] MEDS: PROTONIX 40 MG IV IV SCH (21:15)
[2021-01-13] MEDS: Coreg 6.25 MG PO SCH (21:15)
[2021-01-13] MEDS ORDERED: ENOXAPARIN SODIUM SQ SCH (22:00)
[2021-01-14 05:32] LABS: Hematocrit 31.3 % (42-50); Hemoglobin 10.3 gm/dl (12.5-18.0); Mean Cell Volume 89.2 fl (78-100); Mean Corpuscular Hemoglobin 29.3 pg (26-32); Mean Corpuscular Hgb Concent. 32.9 g/dl (32-36); Mean Platelet Volume 10.8 fl (7.5-11.0); Platelet Count 226 K/mm3 (150-450); Red Blood Count 3.51 M/mm3 (4.1-5.6); Red Cell Distribution Width 12.9 % (11.5-14.0); White Blood Count 8.3 K/mm3 (4.0-10.5)
[2021-01-14 05:47] LABS: ALBUMIN 3.1 g/dL (3.5-5.0); ANION GAP 11.1 MEQ/L (5-15); BILIRUBIN,TOTAL 1.5 mg/dL (0.2-1.3); Calcium 8.7 mg/dL (8.4-10.2); Creatinine 1 1.36 mg/dL (0.66-1.25); EST GLOMERULAR FILTRATION RATE 55.4 ML/MIN; Potassium 4.2 mmol/L (3.5-5.1)
[2021-01-14] MEDS: Sodium Chloride 0.9% 1000 ML 1,000 ML IV SCH (05:48)
[2021-01-14 07:35] LABS: BAND 9 % (0.0-2.0); Basophil 1 % (0.0-1.0); Eosinophil 3 % (0.00-3.0); Lymphocytes 11 % (24-44); Monocyte 15 % (0.0-12.0); Neutrophils 61 % (36.-66.); Total Cells Counted 100
[2021-01-14 07:36] LABS: Platelet Estimate NORMAL (NORMAL)
[2021-01-14 07:37] LABS: Absolute Neutrophil Ct (ANC) 5.79 (1.4-6.9)
--- NOTE | 2021-01-14 10:02 | CONS ---
CONSULT DATE: 01/13/2021 REASON FOR CONSULT: Dysphagia. HISTORY: The history from our chart reviewed, discussion with patient. A 70 year-old male who reports that he has had dysphagia to solids and liquids with a 60 pound weight loss over the last at least month. The patient had previously presented with chest pain and then was identified as a pulmonary embolism and was started on anticoagulation for that. He had work up at [facility]. He was discharged on anticoagulation. He is still having dysphagia but GI did not perform EGD due to his recent blood thinners. At home he continued to have problems not tolerating p.o. so represented to the emergency department. He was admitted and started on fluids, blood thinners held and we were consulted. Other than the weight loss and dysphagia not really having much symptoms at this time. PAST MEDICAL HISTORY: Diabetes type II, hypertension, hyperlipidemia. PAST SURGICAL HISTORY: Appendectomy. Cholecystectomy. 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 MEDICATIONS: Medications reviewed. Last Eliquis was yesterday a.m. and he had a prophylactic dose of Lovenox on 01/13/2021. ALLERGIES: NKDA. PHYSICAL EXAMINATION: Vital signs are normal. HEENT: Normocephalic, atraumatic. CHEST: Nonlabored respirations. HEART: Regular rate and rhythm. ABDOMEN: Soft, nondistended, nontender to palpation. There is a midline hernia which is soft and reducible at his prior midline scar. EXTREMITIES: No peripheral edema. Moving all extremities. NEURO: [place] Coma Scale (GCS) 15. LAB DATA AND TESTS: CBC and BMP reviewed. Creatinine 1.48. Alkaline phosphatase mildly elevated 261. Prealbumin 9.7. Albumin 3.3. Imaging - I do not have his prior CT scan results at outside hospital. ASSESSMENT AND PLAN: A 70 year-old male with profound dysphagia and weight loss. Plan to proceed with EGD as he has been off of his blood thinners for one day now.
--- NOTE | 2021-01-14 10:59 | OP ---
SURGERY DATE/TIME: 01/13/2021 1504 PREOPERATIVE DIAGNOSIS: Dysphagia. POSTOPERATIVE DIAGNOSES: 1) Dysphagia. 2) Gastroesophageal mass with bleeding. PROCEDURES: 1) EGD with biopsy. 2) Control of active bleeding. SURGEON: Simon Izquierdo M.D. ANESTHESIA: IV anesthesia. SPECIMEN: EGD mass biopsy. ESTIMATED BLOOD LOSS: 20 ml. CONDITION: Patient condition stable. COMPLICATIONS: None. HISTORY: See consultation note. This is a 70 year-old male with dysphagia and profound weight loss, wishes to proceed with EGD. Risk of perforation and bleeding discussed. FINDINGS: At the gastroesophageal junction just proximal to the Z-line to just inside the stomach is a mass that is ulcerated and nodular. It did bleed just with the scope trauma and was cauterized for hemostasis. DESCRIPTION OF PROCEDURE: The patient is brought to the endoscopy suite. Time out performed. Gastroscope inserted through the mouth, advanced to the duodenum. The duodenum is normal. The antrum is normal. Retroflexion does show there is start of a mass at the gastroesophageal junction. The scope is withdrawn and the mass extends from about 39 to 42 and it is around 3 to 4 cm long, it is about half to two-thirds gross circumference of the gastroesophageal junction. It is ulcerated posterior and just from the scope there is some mild bleeding, oozing without identifiable vessel. There is no apparent varices. The mass is nodular and ulcerated. Multiple biopsies are taken with biopsy forceps. For hemostasis the biopsy forceps were used with cautery to achieve hemostasis. At the completion there is good hemostasis. There is no active bleeding. Satisfactory biopsies. The stomach desufflated. The scope is withdrawn. The patient tolerated the procedure well. RECOMMENDATIONS: Will recommend CT chest, abdomen and pelvis scans. He will probably need endoscopic ultrasound for local staging if there is no distant disease. This is very concerning for a cancer. He will need b.i.d. Protonix and Carafate four times a day and start to trial liquid diet.
[2021-01-14] MEDS ORDERED: Ativan 2 MG/1 ML VIAL IV ONE (11:27)
--- NOTE | 2021-01-14 12:41 | XRAY ---
Indication: Esophageal mass. Abdominal pain. Multiple contiguous axial images obtained through the chest prior to and following 100 cc Isovue 370 contrast and using PE protocol as ordered. Comparison: None There is adequate opacification of the pulmonary arteries to include the lobar and segmental branches. Minimal respiration artifact limits evaluation for pulmonary embolus. Tiny nonoccluding pulmonary emboli seen in the lateral segment of the right middle lobe and distal lingula branch. Heart not enlarged. Aorta minimally atherosclerotic without aneurysm/dissection. A few small centimeter/subcentimeter paratracheal nodes. Prominent 1.6 x 3.0 cm subcarinal matted node. Small mediastinal and right hilar calcified nodes. No pathologic mediastinal/hilar lymphadenopathy. Gastroesophageal junction demonstrates mass extending into the cardiac portion of the stomach and further detailed on same-day CT abdomen/pelvis. Lungs demonstrate mild bibasilar subsegmental atelectasis/scarring. No suspicious pulmonary mass, infiltrate, or effusion. Bony thorax intact with mild degenerative changes throughout the spine. CT abdomen/pelvis reported separately. Impression: 1. Tiny nonoccluding pulmonary emboli right middle lobe and lingula. 2. Gastroesophageal junction and gastric mass worrisome for malignancy. 3. Prominent subcarinal lymphadenopathy and smaller paratracheal lymph nodes. Rule out metastasis. 4. Incidental chronic bony findings and old granulomatous disease.
[2021-01-14] MEDS: Carafate SUSPENSION 1000 MG/10 ML PO SCH ×2 (12:48→12:59)
[2021-01-14] MEDS: PROTONIX 40 MG IV IV SCH (12:49)
[2021-01-14] MEDS: Coreg 6.25 MG PO SCH (12:49)
[2021-01-14] MEDS: NORVASC 5 MG PO SCH (12:49)
[2021-01-14] MEDS: Zestril 20 MG PO SCH (12:49)
--- NOTE | 2021-01-14 13:00 | XRAY ---
Indication: Esophageal mass. Abdominal pain. Multiple contiguous axial images obtained through the abdomen and pelvis prior to and following 100 cc Isovue 370 contrast as ordered. Enteric contrast also used. Comparison: None CT chest reported separately. Noncontrasted images demonstrates 2 nonobstructing right renal micro-calculi, largest 4 mm. A few tiny splenic calcified granulomas. No other pathologic visceral calcification/calculi. Contrasted stomach demonstrates a large cardiac/lesser curvature gastric mass measuring at least 10.2 x 8.3 x 11 cm effacing the gastric lumen and worrisome for malignancy. Antral stomach also demonstrates unilateral irregular wall mass measuring at least 2.2 cm in thickness and 5 cm in length also worrisome for malignancy. Contrasted bowel loops appear nonobstructed. Liver demonstrates numerous hypodense lesions throughout favoring metastasis. Prominent mesenteric root lymphadenopathy largest 2.1 x 2.6 cm also probably metastatic. Smaller more distal periaortic metastatic lymph nodes largest 1.7 x 2.2 cm. Pelvis demonstrates tiny nonspecific fluid. No walled off fluid collection or free air. Both kidneys enhance and excrete. Left kidney is markedly atrophic. 10.5 cm right upper pole renal cyst. No hydronephrosis or hydroureter. Previous cholecystectomy. Remaining pancreas, spleen, adrenal glands, and urinary bladder are unremarkable. Mild scattered aortoiliac calcifications with distal aortic ectasia. Osseous structures intact with mild multilevel degenerative spondylosis throughout the thoracolumbar spine. Also bilateral L5 spondylolysis with 1-2 mm spondylolisthesis. No suspicious bony lesions. Impression: 1. Gastric masses as detailed worrisome for malignancy. 2. Diffuse hepatic metastasis. Also mesenteric root and periaortic metastatic lymphadenopathy. 3. Atrophic left kidney with nonobstructing micro-calculi and large right renal cyst. 4. Mild scattered arteriosclerotic disease with distal aortic ectasia. 5. Multilevel degenerative spondylosis and L5 spondylolysis with minimal grade 1 spondylolisthesis.
[2021-01-14 17:50] VITALS: BP 150/78; PULSE 54; O2SAT 95
--- NOTE | 2021-01-17 12:45 | DS ---
DISCHARGE DIAGNOSIS: METASTATIC ESOPHAGEAL CANCER. HOSPITAL COURSE: The patient is a 70 year-old white male patient presenting to the hospital with inability to eat or drink. He said that food is getting stuck and the patient had a fairly recent diagnosis also for deep vein thrombosis and pulmonary embolism for which he was started on Eliquis. The patient was seen at our facility. Surgical consultation obtained from Dr. Izquierdo who did an EGD and biopsies that are not back yet but were strongly suspicious for esophageal cancer. The patient has additional CT scan of the abdomen and pelvis which showed a fairly large lesion indenting into the stomach externally measuring approximately 10 cm in diameter maximum width. The patient also appeared to have metastatic lesions in his liver as best as can be told with our CT evaluation. The patient otherwise is now able to drink fluids. He is able to get up and move around. He has had discussion of this diagnosis and we wish him to see the surgeon to follow up in approximately one week for his biopsy reports and to further develop a plan of action for his likely esophageal cancer issue. We have also talked to the patient about discussion with his family his potential plan for finding a local oncologist to follow up as well for further delineation of treatment options. Otherwise the patient is stable and ready for discharge.
== END 2021-01-14 18:03 | disposition home or self-care (01) ==
LOC: ED 13:15 → MED SURG 18:30
PROVIDERS: ADMIT Family Medicine; ATTEND Family Medicine
DX: C15.9 Malignant neoplasm of esophagus, unspecified (principal); C78.7 Secondary malignant neoplasm of liver and intrahepatic bile duct; E11.9 Type 2 diabetes mellitus without complications; R63.4 Abnormal weight loss; I10 Essential (primary) hypertension; E78.5 Hyperlipidemia, unspecified; Z20.822 Contact with and (suspected) exposure to COVID-19; Z86.711 Personal history of pulmonary embolism; Z79.01 Long term (current) use of anticoagulants; Z79.899 Other long term (current) drug therapy
CPT/HCPCS: 36000; 36415; 43239; 43255; 71270; 74178; 80053; 82947; 83036; 84134; 85025; 88341; 88342; 88360; 93268; 94760; 96360; 96361; 99284; G0378; U0003; 88305; J1650; J2060; J2704; A9270-GY

== ENCOUNTER 2021-01-25 15:28 | Inpatient (IN) | payer BC, MEDICARE ==
[2021-01-25] MEDS ORDERED: XYLOCAINE 1% HCL 20 ML MDV ONE (15:58)
[2021-01-25] MEDS ORDERED: ZOFRAN ODT 4 MG PO PRN (16:37)
[2021-01-25] MEDS ORDERED: Lactated Ringers 1,000 ML IV SCH (17:00)
[2021-01-25] MEDS: D5W/0.45NS W/ 20mEq KCl 1000 ML 1,000 ML IV SCH ×2 (17:00→20:44)
[2021-01-25 17:17] LABS: INR 1.38 (0.8-3.0); PROTIME 16.3 SECONDS (9.4-12.5)
[2021-01-25 17:19] LABS: PTT 30.3 SECONDS (25.1-36.5)
[2021-01-25 17:28] LABS: BASOPHIL % 0.3 % (0.0-0.4); Basophil (Absolute #) 0.03 (0-0.4); Eosinophil % 0.3 % (0.00-5.0); Eosinophil (Absolute #) 0.03 (0-0.5); Hematocrit 36.6 % (42-50); Hemoglobin 11.9 gm/dl (12.5-18.0); Lymphocyte (Absolute #) 0.51 (1.0-4.6); Lymphocytes % 4.4 % (24.0-44.0); Mean Corpuscular Hemoglobin 28.6 pg (26-32); Mean Corpuscular Hgb Concent. 32.5 g/dl (32-36); Mean Platelet Volume 10.3 fl (7.5-11.0); Monocyte (Absolute #) 1.29 (0.0-1.3); Monocytes % 11.1 % (0.0-12.0); Neutrophil % 83.9 % (36.0-66.0); Platelet Count 342 K/mm3 (150-450); Red Blood Count 4.16 M/mm3 (4.1-5.6); Red Cell Distribution Width 13.3 % (11.5-14.0); White Blood Count 11.7 K/mm3 (4.0-10.5)
[2021-01-25 17:36] LABS: ALBUMIN 3.5 g/dL (3.5-5.0); ANION GAP 14.3 MEQ/L (5-15); BILIRUBIN,TOTAL 1.7 mg/dL (0.2-1.3); Calcium 9.5 mg/dL (8.4-10.2); Creatinine 1 1.31 mg/dL (0.66-1.25); EST GLOMERULAR FILTRATION RATE 57.8 ML/MIN; Potassium 4.6 mmol/L (3.5-5.1); Total Protein 6.8 g/dL (6.3-8.2)
[2021-01-25] MEDS: Coreg 6.25 MG PO SCH (20:38)
[2021-01-25] MEDS: Ambien 10 MG PO SCH (21:40)
--- NOTE | 2021-01-25 21:56 | XRAY ---
Indication: Esophageal stent dislodgment. Comparison: December 07, 2020. Portable apical lordotic chest demonstrates new known esophageal stent orientated transverse with proximal stent projecting over GE junction and remaining distal stent presumed in stomach. Remaining heart and lungs normal. Bony thorax intact again with mild osteopenia and degenerative changes. Comment: Preliminary interpretation made by C. No critical discrepancy.
--- NOTE | 2021-01-25 21:58 | XRAY ---
Indication: Esophageal stent dislodgment. Esophageal mass. Abdomen pain. Comparison: December 07, 2020. KUB demonstrates known esophageal stent orientated transverse with proximal stent projecting over GE junction and remaining distal stent presumed in stomach. Remaining KUB nonacute and nonobstructed with incidental cholecystectomy clips and mild multilevel thoracolumbar degenerative spondylosis. Comment: Preliminary interpretation made by C. No critical discrepancy.
[2021-01-25] MEDS ORDERED: PROTONIX 40 MG IV IV SCH (22:00)
[2021-01-25 22:27] LABS: Slide Review 1 YES
[2021-01-26] MEDS ORDERED: Tums EX 750 MG PO PRN ×2 (03:00→03:14)
[2021-01-26] MEDS ORDERED: Tums EX 750 MG ONE (03:09)
[2021-01-26] MEDS: D5W/0.45NS W/ 20mEq KCl 1000 ML 1,000 ML IV SCH (04:26)
[2021-01-26 05:19] LABS: Hematocrit 33.9 % (42-50); Hemoglobin 11.1 gm/dl (12.5-18.0); Mean Cell Volume 87.1 fl (78-100); Mean Corpuscular Hemoglobin 28.5 pg (26-32); Mean Corpuscular Hgb Concent. 32.7 g/dl (32-36); Mean Platelet Volume 10.4 fl (7.5-11.0); Platelet Count 287 K/mm3 (150-450); Red Blood Count 3.89 M/mm3 (4.1-5.6); Red Cell Distribution Width 13.1 % (11.5-14.0); White Blood Count 11.4 K/mm3 (4.0-10.5)
[2021-01-26 06:26] LABS: ALBUMIN 3.1 g/dL (3.5-5.0); ALKALINE PHOSPHATASE 326 U/L (38-126); ANION GAP 12.7 MEQ/L (5-15); BLOOD UREA NITROGEN 26 mg/dL (9-20); CHLORIDE 100 mmol/L (98-107); Calcium 8.8 mg/dL (8.4-10.2); Carbon Dioxide 23 mmol/L (22-30); Creatinine 1 1.16 mg/dL (0.66-1.25); EST GLOMERULAR FILTRATION RATE > 60.0 ML/MIN; Glucose 233 mg/dL (74-106); Potassium 4.1 mmol/L (3.5-5.1); SGOT/AST 115 U/L (17-59); SGPT/ALT 54 U/L (0-50); SODIUM 131 mmol/L (137-145); Total Protein 6.1 g/dL (6.3-8.2)
[2021-01-26] MEDS: NORVASC 5 MG PO SCH (08:25)
[2021-01-26] MEDS: Coreg 6.25 MG PO SCH (08:26)
[2021-01-26] MEDS ORDERED: Lactated Ringers 1,000 ML IV ONE (09:00)
[2021-01-26] MEDS ORDERED: Transderm Scop 1.5MG Patch ONE (09:07)
[2021-01-26] MEDS: Lactated Ringers 1,000 ML IV SCH ×2 (09:11→17:42)
--- NOTE | 2021-01-26 09:14 | HP ---
CHIEF COMPLAINT: Nausea, vomiting and known history of esophageal cancer. HISTORY OF PRESENT ILLNESS: The patient is a 70 year-old white male patient who presented to the emergency room and was admitted a couple of weeks ago for persistent vomiting. He had endoscopic evaluation done by Dr. Izquierdo which revealed a mass in the gastroesophageal junction. Biopsies were obtained but only showed the cancer but did not differentiate between adeno or squamous cell. The patient was treated with IV fluids and nausea medication. The evaluations at that time showed the cancer to be spread throughout the liver as well as approximately 10 cm indenting the stomach. Once the patient left the hospital on that visit he went to [facility] who repeated the EGD and additional biopsies were obtained which we are still waiting on the report from. They reported to him at that time that it is a terminal illness and he only has a few months of time before they eventually expect to succumb from the illness. PAST MEDICAL/SURGICAL HISTORY: Otherwise significant for deep vein thrombosis. He had been on Eliquis for this. Since the patient has home he had recurrent vomiting and saw Dr. Izquierdo yesterday who felt the patient needed NG tube placement which the patient agreed to which is why he is here presently in addition to getting IV fluid rehydration. The patient's past medical history is also significant for hypertension and diabetes. He will have laparoscopic PEG tube placement by Dr. Izquierdo later today. HOME MEDICATIONS: The patient's current medications will now be IV Protonix drip. He is getting IV fluids of D5 half normal saline plus 20 mEq of potassium 125 cc/hour. ALLERGIES: NKDA. PHYSICAL EXAMINATION: Currently his vital signs are: Temperature 97.7F, pulse 66, respiratory rate 16, blood pressure 160/93. O2 saturation was noted to be 95% on room air. HEENT: Normocephalic, atraumatic. Pupils equal round reactive to light. Extraocular movements intact. Oropharynx is pink and moist. NECK: Supple without lymphadenopathy, thyromegaly or JVD. CHEST: Essentially clear to auscultation. HEART: Regular rate and rhythm without significant murmurs, rubs or gallops. ABDOMEN: Somewhat tender in the epigastric and right upper quadrant. No palpable masses otherwise are felt at this time. EXTREMITIES: Without cyanosis, clubbing or edema. NEUROLOGIC: The patient is alert and oriented x3. No focal deficits noted. LAB DATA AND TESTS: COVID test negative. He had a white count of 11,700, hemoglobin 11.9, PLT count 342,000. His INR is 1.28. His glucose 171, BUN 32, creatinine 1.31. Sodium slightly low at 133. Electrolytes were low as normal. His total bilirubin was slightly elevated at 1.70. His alkaline phosphatase is elevated at 368. AST and ALT are both slightly elevated as well. KUB showed the stent present in the gastroesophageal junction extending into the stomach. Chest x-ray otherwise was unremarkable. ASSESSMENT: Again a patient with nonoperable esophageal cancer. The patient has been admitted for IV fluid hydration and plan to place a G-tube. Otherwise the patient wishes no aggressive management and specifically wishes to be a No Code. We discussed with him the potential for seeing an oncologist and talking to Hospice care people.
[2021-01-26] MEDS ORDERED: Zofran 4 MG/2 ML VIAL IV PRN (09:46)
[2021-01-26] MEDS ORDERED: Pepcid 20 MG VIAL IV SCH ×2 (10:00→16:00)
[2021-01-26] MEDS: PROTONIX 40 MG IV*** 80 MG in Sodium Chloride 0.9% 500 ML 500 ML IV SCH ×2 (10:45→22:29)
[2021-01-26] MEDS: Pepcid 20 MG VIAL IV SCH ×2 (12:15→17:35)
[2021-01-26] MEDS ORDERED: Reglan 10 MG/2 ML IV SCH (16:00)
[2021-01-26] MEDS ORDERED: Transderm Scop 1.5MG Patch TOP SCH (16:00)
[2021-01-26] MEDS ORDERED: CEFAZOLIN 2 GM-D5W BAG** 2 GM/50 ML ML IV SCH (17:00)
[2021-01-26] MEDS ORDERED: Sensorcaine 0.25% 10 ML ONE ×2 (17:36→18:43)
[2021-01-26] MEDS ORDERED: XYLOCAINE 1% HCL 20 ML MDV ONE (17:36)
[2021-01-26] MEDS ORDERED: DIPRIVAN 200 MG/20 ML IV ONE (18:00)
[2021-01-26] MEDS ORDERED: SUBLIMAZE 100 MCG/2 ML ONE ×2 (18:04→20:25)
[2021-01-26] MEDS ORDERED: Xylocaine-Mpf 2% 5 Ml Vial ONE (18:04)
[2021-01-26] MEDS ORDERED: Zofran 4 MG/2 ML VIAL ONE (18:04)
[2021-01-26] MEDS ORDERED: Decadron 4 MG INJ ONE (18:04)
[2021-01-26] MEDS ORDERED: Zemuron 100 MG/10 ML ONE ×2 (18:04→19:38)
[2021-01-26] MEDS ORDERED: TORAdol 30 mg Injection ONE (18:04)
[2021-01-26] MEDS ORDERED: BRIDION 200MG/2ML IV ONE (18:04)
[2021-01-26] MEDS: MORPHINE SULFATE 4 MG INJ IV PRN (22:30)
[2021-01-27] MEDS: MORPHINE SULFATE 4 MG INJ IV PRN ×4 (00:25→16:28)
[2021-01-27] MEDS: Ambien 10 MG PO SCH ×2 (00:42→21:34)
[2021-01-27] MEDS: Coreg 6.25 MG PO SCH ×3 (00:43→21:35)
[2021-01-27 05:32] LABS: Hematocrit 37.2 % (42-50); Mean Cell Volume 87.7 fl (78-100); Mean Corpuscular Hemoglobin 28.3 pg (26-32); Mean Corpuscular Hgb Concent. 32.3 g/dl (32-36); Platelet Count 342 K/mm3 (150-450); Red Blood Count 4.24 M/mm3 (4.1-5.6); Red Cell Distribution Width 13.6 % (11.5-14.0)
[2021-01-27 06:02] LABS: ALBUMIN 3.1 g/dL (3.5-5.0); ALKALINE PHOSPHATASE 335 U/L (38-126); ANION GAP 14.8 MEQ/L (5-15); BLOOD UREA NITROGEN 26 mg/dL (9-20); CHLORIDE 101 mmol/L (98-107); Calcium 8.9 mg/dL (8.4-10.2); Carbon Dioxide 19 mmol/L (22-30); Creatinine 1 1.14 mg/dL (0.66-1.25); EST GLOMERULAR FILTRATION RATE > 60.0 ML/MIN; Glucose 179 mg/dL (74-106); Potassium 4.6 mmol/L (3.5-5.1); SGOT/AST 146 U/L (17-59); SGPT/ALT 59 U/L (0-50); SODIUM 130 mmol/L (137-145); Total Protein 6.2 g/dL (6.3-8.2)
[2021-01-27 06:57] LABS: BAND 9 % (0.0-2.0); Lymphocytes 3 % (24-44); Monocyte 3 % (0.0-12.0); Neutrophils 85 % (36.-66.); Platelet Estimate NORMAL (NORMAL); Total Cells Counted 100
[2021-01-27] MEDS: Dextrose 5%-Lr IV Solution 1000 ML 1,000 ML IV SCH ×2 (07:33→15:18)
[2021-01-27] MEDS: NORCO 5/325 MG PO PRN ×2 (08:56→13:30)
[2021-01-27] MEDS: NORVASC 5 MG PO SCH (09:19)
[2021-01-27] MEDS: MORPHINE SULFATE 2 MG INJ IV PRN (09:39)
--- NOTE | 2021-01-27 09:41 | OP ---
SURGERY DATE/TIME: 01/26/20211821 PREOPERATIVE DIAGNOSES: 1) Metastatic esophageal cancer. 2) Dysphagia with inadequate enteral intake. POSTOPERATIVE DIAGNOSES: 1) Gastroesophageal junction cancer. 2) Dysphagia with inadequate enteral intake. PROCEDURES: 1) Left subclavian port insertion with fluoroscopic interpretation. 2) Esophagogastroduodenoscopy. 3) Laparoscopic gastrostomy tube insertion. SURGEON: Simon Izquierdo M.D. ANESTHESIA: General. ESTIMATED BLOOD LOSS: Minimal. PATIENT CONDITION: Stable. COMPLICATIONS: None. SPECIMENS: Liver biopsy. HISTORY: The patient is a 70-year-old male recently diagnosed with metastatic gastroesophageal junction squamous cell carcinoma. He initially went to [facility] where he was diagnosed with pulmonary embolism, started on blood thinner and then he was admitted to [facility] where he was diagnosed and performed an EGD. He had CT scan showing diffuse metastatic liver disease. He after being discharged went to [facility] where they performed an additional EGD with esophageal stent placement. After that, the patient was discharged home. He had very poor p.o. intake. After drinking liquids he would immediate throw them up and presented to the emergency department for IV fluids and then he presented to my office the following day for enteral access. Discussion was had with the patient. The risks of infection, bleeding, injury to nearby structure, perforation, the option of interventional radiology, G-tube placement but the patient ultimately elected for admission at [facility] with laparoscopic approach. FINDINGS: The port first stick good return and flush, tip of the cavoatrial junction okay to use immediately. EGD showed the esophageal stent in adequate location. The scope was able to be passed through it. However, there was a very large gastroesophageal mass and perhaps this mass is compressing the stomach distal to the stent even though the scope is able to be passed through the stomach through the area of concern. Laparoscopy was performed. There was seromuscular injury to small bowel during the first port insertion which is over sewn with 3-0 Vicryl suture. A gastropexy is performed with the laparoscopic G-tube insertion which is distal to the stomach mass. DESCRIPTION OF PROCEDURE: The patient was brought to the operating room. General anesthesia induced. He was routinely prepped and draped, received preoperative antibiotic. Time out is performed. Left subclavian stick performed. First stick good return and flushed. Wire threaded easily below the diaphragm and confirmed with fluoroscopy. The port pocket is measured out inside. The port pocket developed. The catheter is tunneled. The sheath dilator placed under fluoroscopy. The catheter inserted and measured to size, cut to size, attached to the catheter. The tip is at the cavoatrial junction. Tear away sheath torn the rest of the way away. Final images showing the tip at the cavoatrial junction as well as the rest of the catheter without kinks. It was tested and there is good return and flushed with heparin saline. Additional image taken of the esophageal stent which is in similar position on the previous x-ray. The drapes are then taken down. The patient was then prepared for the EGD. The gastroscope was inserted through the mouth, advanced to the distal esophagus. Esophageal stent appears in good position. The scope is able to be passed through the stent into the stomach. There is some collapse of the stomach which made it initially a little difficult to get the scope through that and the scope was eventually able to be passed to the distal stomach. The stent does appear to be in satisfactory position. Perhaps the gastroesophageal mass is so bulky it is compressing it locally in the stomach so the scope is withdrawn. The stomach had been desufflated. The patient is then prepared for laparoscopy. Routinely prepped and draped. Time out performed. The left upper quadrant Veress needle is placed. Opening pressure is 5. Pneumoperitoneum established. A left mid abdominal port is placed away from his prior scar and the abdomen is accessed. However, it is just adjacent to a couple of loops of small bowel. There is space in the left lateral abdomen. Additional 5 mm port is placed even more lateral left abdomen. The trocar entry sites re-examined. It appears that there is a seromuscular injury to the small bowel loop which is adherent to the abdominal wall. An additional 8 mm port is placed and then the injury is over sewn with interrupted 3-0 Vicryl suture. Adhesiolysis is performed less than 15 minutes to bring down enough space to place a 5 mm port in the midline. The abdomen is examined. There is diffuse liver metastatic disease throughout the entire liver. A help desk representative biopsy is taken. Multiple biopsies are taken with the biopsy forceps. Hemostasis achieved with cautery. There is a very large gastroesophageal junction mass extending into the antrum and body of the stomach this is quite bulky. However, the distal stomach is normal and the distal stomach appears that it pulls up nicely to the abdominal wall. Through gastropexy 3-0 Vicryl sutures are placed around the intended gastrostomy site and those are brought up to the abdominal wall with suture passer. The 20 [place]olese G-tube site is marked and sized. The fascia is spread and the G-tube is inserted. Gastrotomy made in the stomach and the G-tube is then inserted and the balloon is blown up and stomach is approximated to abdominal wall and the sutured gastropexies are tied down and this is satisfactory. There is good apposition and the bumper is at 2 cm of the skin. The ports were removed under direct visualization with the left lateral port used for desufflation and then removed. Skin is closed with 4-0 Vicryl sutures, Steri-Strips and sterile dressings are applied. All counts are correct. The patient tolerated the procedure well. He was extubated, taken to recovery in stable condition.
[2021-01-27] MEDS ORDERED: Pepcid 20 MG PO SCH (10:00)
[2021-01-27] MEDS: D5W/0.45NS W/ 20mEq KCl 1000 ML 1,000 ML IV SCH (15:17)
[2021-01-27] MEDS: PROTONIX 40 MG IV*** 80 MG in Sodium Chloride 0.9% 500 ML 500 ML IV SCH (15:18)
[2021-01-27] MEDS ORDERED: ULTRAM 50 MG PO PRN (16:00)
[2021-01-27] MEDS ORDERED: Sodium Chloride 0.9% 500 ML 500 ML IV ONE (17:03)
--- NOTE | 2021-01-27 18:32 | XRAY ---
Exam: Fluoroscopy for venous access from 01/26/2021. Indication: Port placement Findings: 12 seconds of intraoperative C-arm imaging was obtained. 4 C-arm images were obtained. One image is of the port overlying the left lung apex. 2 additional images demonstrate the distal end of the catheter to be pointing inferiorly near the cavoatrial junction. A fourth image reveals the proximal end of a transversely oriented esophageal stent near the gastroesophageal junction. The distal aspect of the stent courses off the left margin of the image, presumably within the stomach.
[2021-01-27] MEDS ORDERED: Sodium Chloride 0.9% 1000 ML 1,000 ML ONE (18:45)
[2021-01-27] MEDS: Sodium Chloride 0.9% 1000 ML 1,000 ML IV SCH ×2 (18:46→21:34)
[2021-01-27] MEDS ORDERED: SODIUM CHLORIDE 0.9% IV ONE (21:01)
[2021-01-27] MEDS ORDERED: LEVOPHED 4 MG/4 ML 4,000 MCG in Dextrose 5%/Water IV Soln. 500 ML 500 ML IV PRN (21:06)
[2021-01-27 21:45] LABS: Hematocrit 34.2 % (42-50); Hemoglobin 11.2 gm/dl (12.5-18.0); Mean Cell Volume 88.4 fl (78-100); Mean Corpuscular Hemoglobin 28.9 pg (26-32); Mean Corpuscular Hgb Concent. 32.7 g/dl (32-36); Mean Platelet Volume 10.6 fl (7.5-11.0); Platelet Count 280 K/mm3 (150-450); Red Blood Count 3.87 M/mm3 (4.1-5.6); Red Cell Distribution Width 13.9 % (11.5-14.0); White Blood Count 6.3 K/mm3 (4.0-10.5)
[2021-01-27 21:54] LABS: ANION GAP 16.7 MEQ/L (5-15); Calcium 8.2 mg/dL (8.4-10.2); Creatinine 1 2.29 mg/dL (0.66-1.25); EST GLOMERULAR FILTRATION RATE 30.4 ML/MIN; Potassium 4.7 mmol/L (3.5-5.1)
[2021-01-27 23:05] VITALS: O2SAT 93
[2021-01-28] MEDS: Zosyn 3.375 GM Vial 3.375 GM in Sodium Chloride 100ML MINI-BAG PLUS 100 ML IV SCH ×2 (01:14→02:04)
[2021-01-28] MEDS: Sodium Chloride 0.9% 1000 ML 1,000 ML IV SCH (01:15)
[2021-01-28] MEDS: MORPHINE SULFATE 2 MG INJ IV PRN (02:11)
[2021-01-28] MEDS ORDERED: MORPHINE SULFATE 2 MG INJ IV PRN (02:43)
[2021-01-28 02:51] VITALS: BP 77/47; PULSE 81
--- NOTE | 2021-01-28 09:27 | DS ---
DISCHARGE DIAGNOSES: HOSPITAL COURSE: The patient is a 70-year-old white male patient recently diagnosed with metastatic esophageal cancer. The patient had been seen in [facility] and biopsies obtained to determine what type of cancer he had. He previously had an EGD in our facility which did show what was likely cancer but did not determine it was squamous or adenocarcinoma. The patient went to the [facility] and had a stent placed in the esophagus. He presented back to our emergency room with further problems and was admitted to the hospital. Surgical consultation was obtained due to the patient's inability to keep any fluids or food down. The plan was to place a G-tube laparoscopically. Unfortunately, the patient did poorly after the surgery having increasing abdominal distention. He became hypotensive and the patient had already declared his desire to be a No Code. Unfortunately, with IV fluid hydration and other means of treatment the patient drifted downward on his blood pressure. The family did not desire to place him on pressure medications and the patient in the morning hours of 01/28/2021. His was expected even though it may have been earlier than we thought. His care was in line with the patient's family and the patient's wishes.
--- NOTE | 2021-01-28 09:36 | XRAY ---
Exam: AP supine abdomen film from 01/27/2021. Comparison: Abdomen film from 01/25/2021. Indication: Distended abdomen; history of esophageal stent due to cancer. There was clinical concern for position of the PEG tube. Findings: 30 cc of full-strength Gastrografin was injected through the PEG tube, and an abdomen film was obtained. Contrast is seen entering the proximal antrum of the stomach with the Gastrografin extending proximally into the gastric fundus. I see no evidence of extravasation. I again note a transversely oriented stent at the medial aspect of the gastric fundus extending through the gastroesophageal junction. Surgical clips consistent with prior cholecystectomy are seen within the right upper quadrant. The bowel gas pattern appears unremarkable with mild scattered stool within the hepatic flexure, proximal proximal transverse colon, splenic flexure, and descending colon. No hepatosplenomegaly is seen. Lateral osteophyte formation is seen within the visualized thoracolumbar spine. Impression: 1. PEG tube tip and Gastrografin contrast are within the stomach lumen. There is no evidence of abnormal extravasation.
== END 2021-01-28 03:30 | disposition expired | DRG 375 ==
LOC: MED SURG 15:54 → OBSVTOIN 15:54
PROVIDERS: ADMIT Surgery; ATTEND Surgery
PROC: 05H633Z Insertion of Infusion Device into Left Subclavian Vein, Percutaneous Approach (ICD-10-PCS; principal; 2021-01-26)
PROC: 0DJ08ZZ Inspection of Upper Intestinal Tract, Via Natural or Artificial Opening Endoscopic (ICD-10-PCS; 2021-01-26)
PROC: 0DH64UZ Insertion of Feeding Device into Stomach, Percutaneous Endoscopic Approach (ICD-10-PCS; 2021-01-26)
DX: C15.9 Malignant neoplasm of esophagus, unspecified (principal); C78.7 Secondary malignant neoplasm of liver and intrahepatic bile duct; R11.2 Nausea with vomiting, unspecified; I10 Essential (primary) hypertension; R13.10 Dysphagia, unspecified; E11.9 Type 2 diabetes mellitus without complications; Z86.718 Personal history of other venous thrombosis and embolism; Z20.822 Contact with and (suspected) exposure to COVID-19; Z79.899 Other long term (current) drug therapy
CPT/HCPCS: 36415; 71045; 74018; 77001; 80048; 80053; 82947; 85025; 85027; 85049; 85610; 85730; 88307; 88313; 88341; 88342; 93005; 94760; C1788; J0690; J1100; J1642; J1885; J2270; J2405; J2704; J3010; L0625; Q0162; U0003; A9270-GY